=== PATIENT | male | born 1975 | race Caucasian/White ===

== ENCOUNTER 2023-06-28 10:07 | Emergency (ER) | payer OTHER, SELFPAY ==
[2023-06-28] VITALS (7 sets, daily range): BP systolic 139–182; BP diastolic 86–106; BMI 31.8
--- NOTE | 2023-06-28 10:31 | ED.GENMED ---
History of Present Illness
<Saman Finley, DO - Last Filed: 07/01/23 12:29>
General
Chief Complaint: Blood Pressure Problem
Source: patient
Exam Limitations: none
Time Seen by Provider: 06/28/23 10:17
Travel History
Have you had any contact with someone who has COVID-19?: No
Do you have any symptoms of coronavirus? Fever > 100 degrees, chills, cough, shortness of breath, sore throat, loss of taste or smell, muscle aches, or headache?: No
History of Present Illness
History of Present Illness:
See MDM
Past History
<Saman Finley, DO - Last Filed: 07/01/23 12:29>
Past History
ED Past Medical History: HTN
ED Past Surgical History: None
Social History
Tobacco: Non-smoker
Alcohol: None
Phy Exam
<Saman Finley, DO - Last Filed: 07/01/23 12:29>
Physical Exam
Physical Exam:
See MDM
Course
<Saman Finley, DO - Last Filed: 07/01/23 12:29>
Orders/Labs/Results
Orders:
Orders
06/28/23 10:30
0.9% Sodium Chloride 1000 ml [Nss] 1,000 ml IV BOLUS
Lorazepam [Ativan] 1 mg IV NOW STA
06/28/23 11:14
Complete Blood Count/With Diff Urgent
Comprehensive Metabolic Panel Urgent
D-Dimer Urgent
Magnesium Urgent
NT-proBNP Urgent
TSH Reflex To Free T4 Urgent
Troponin I Urgent
06/28/23 12:15
CR Chest - 2 Views Urgent
Comment:
Reason For Exam: SOB
06/28/23 12:18
Amlodipine [Norvasc] 5 mg PO ONCE ONE
06/28/23 13:10
Aspirin Chewable [Low Strength Aspirin] 324 mg PO NOW STA
06/28/23 13:12
Electrocardiogram (*1) Urgent
Reason for Study: Shortness of Breath
EKG- Treatment ONCE
06/28/23 13:13
Consult Cardiology [CARDIOLOGY CONSULT] Urgent
Consulting Provider: Chandu Brunner
Was physician already notified: Yes
06/28/23 13:28
Troponin I Urgent
06/28/23 13:37
Electrocardiogram (*1) Urgent
Reason for Study: Hypertension, Benign
EKG- Treatment ONCE
06/28/23 14:56
Echo 2D MMode Color/Doppler [Echo 2D MMode Color/Doppler] Routine
Reason for Study: chest pain, abnormal troponin
Cardiology Consult: Yoni Brunner
06/28/23 16:00
Metoprolol Xl [Toprol Xl] 25 mg PO DAILY
Abnormal Lab Results
06/28/23 06/28/23
11:14 13:28
Abs Immat Gran (auto) 0.1 H 10^3/uL
(0-0.05)
Immature Gran % 1.0 H %
(0-0.5)
Glucose 106 H mg/dl
(70-99)
ALT 87 H U/L
(0-50)
Troponin I 0.043 H* ng/ml 0.048 H* ng/ml
06/28/23 11:14
06/28/23 11:14
Vital Signs
Initial and Last Documented VS:
Initial Vital Signs
Temp Pulse Resp BP Pulse Ox
98.7 F 115 18 182/106 99
06/28/23 10:11 06/28/23 10:11 06/28/23 10:11 06/28/23 10:11 06/28/23 10:11
Last Documented Vital Signs
Temp Pulse Resp BP Pulse Ox
98.7 F 98 20 139/86 96
06/28/23 10:11 06/28/23 15:00 06/28/23 15:00 06/28/23 15:00 06/28/23 15:00
<Nilesh Ridley MD - Last Filed: 06/28/23 16:25>
Orders/Labs/Results
Orders:
Orders
06/28/23 10:30
0.9% Sodium Chloride 1000 ml [Nss] 1,000 ml IV BOLUS
Lorazepam [Ativan] 1 mg IV NOW STA
06/28/23 11:14
Complete Blood Count/With Diff Urgent
Comprehensive Metabolic Panel Urgent
D-Dimer Urgent
Magnesium Urgent
NT-proBNP Urgent
TSH Reflex To Free T4 Urgent
Troponin I Urgent
06/28/23 12:15
CR Chest - 2 Views Urgent
Comment:
Reason For Exam: SOB
06/28/23 12:18
Amlodipine [Norvasc] 5 mg PO ONCE ONE
06/28/23 13:10
Aspirin Chewable [Low Strength Aspirin] 324 mg PO NOW STA
06/28/23 13:12
Electrocardiogram (*1) Urgent
Reason for Study: Shortness of Breath
EKG- Treatment ONCE
06/28/23 13:13
Consult Cardiology [CARDIOLOGY CONSULT] Urgent
Consulting Provider: Chandu Brunner
Was physician already notified: Yes
06/28/23 13:28
Troponin I Urgent
06/28/23 13:37
Electrocardiogram (*1) Urgent
Reason for Study: Hypertension, Benign
EKG- Treatment ONCE
06/28/23 14:56
Echo 2D MMode Color/Doppler [Echo 2D MMode Color/Doppler] Routine
Reason for Study: chest pain, abnormal troponin
Cardiology Consult: Yoni Brunner
06/28/23 16:00
Metoprolol Xl [Toprol Xl] 25 mg PO DAILY
Abnormal Lab Results
06/28/23 06/28/23
11:14 13:28
Abs Immat Gran (auto) 0.1 H 10^3/uL
(0-0.05)
Immature Gran % 1.0 H %
(0-0.5)
Glucose 106 H mg/dl
(70-99)
ALT 87 H U/L
(0-50)
Troponin I 0.043 H* ng/ml 0.048 H* ng/ml
06/28/23 11:14
06/28/23 11:14
Vital Signs
Initial and Last Documented VS:
Initial Vital Signs
Temp Pulse Resp BP Pulse Ox
98.7 F 115 18 182/106 99
06/28/23 10:11 06/28/23 10:11 06/28/23 10:11 06/28/23 10:11 06/28/23 10:11
Last Documented Vital Signs
Temp Pulse Resp BP Pulse Ox
98.7 F 98 20 139/86 96
06/28/23 10:11 06/28/23 15:00 06/28/23 15:00 06/28/23 15:00 06/28/23 15:00
<Saman Finley, DO - Last Filed: 07/01/23 12:29>
MDM/Problems Addressed
Differential Diagnosis Includes:
HPI and MDM Narrative:
47-year-old male presenting for evaluation of abnormal blood pressure. Patient does take losartan 50 mg daily. He has noted that his blood pressure has been 'all over the place' for the past several days. Patient started to feel anxious. He does
admit that there is increased stress at work. He is unsure if there is some underlying issue or if this is all anxiety related. He did take an clonazepam. Currently at rest, patient started to feel fidgety and anxious. He denies current
chest pain or shortness of breath. He has been able to work out which has been helping. He denies exertional dyspnea or chest pain
Physical exam
General: Well appearing and non-toxic
HEENT: protecting airway
Neck: supple
CV: No evidence of cyanosis. Tachycardic
Resp: No accessory muscle use. Lungs clear
Abd: Non-distended
Extremities: No deformities. No leg edema
Neuro: alert
Psych: Normal affect
Skin: Intact
Problems Addressed including Acute and Chronic Conditions affecting care:
1. Hypertension
Acuity: acute
Prognosis: stable
Details: Will look for underlying lab issues but potentially in the setting of anxiety. Will obtain troponin and D-dimer and reassess after Ativan
2. Intermittent chest comfort
Acuity: acute
Prognosis: stable
Details: Given the elevated troponin, patient given aspirin
Updates
D-dimer negative. Chest x-ray clear.
Patient found to have an elevated troponin. Upon further questioning, it appears the patient has had intermittent chest discomfort. Patient given aspirin. Will have cardiology evaluate
Differential Diagnosis (but not limited to): HTN, anxiety, hyperthyroid
Testing considered:
Drug therapy (if applicable): OTC meds, please see d/c instruction regarding Rx drugs
Amount and/or Complexity of Data Reviewed
Clinical info obtained from: Patient
External data reviewed: N/A
Labs I independently reviewed (but not limited to): Elevated troponin
Radiology: X-ray independently reviewed: Chest x-ray clear
Pulse Ox: not hypoxic
EKG independently reviewed: Sinus rhythm, normal axis, no STEMI
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
Critical Care: N/A
Risk of Complication:
Social Determinants of health: Good social support
Discussed with other providers: Cardiology
Escalation of Care includes Admit/Obs: Will have cardiology evaluate to discuss disposition of home versus admission
Occasional wrong word or 'sound a like' substitutions may have occurred due to the inherent limitations of voice recognition software. Read the chart carefully and recognize, using context, where substitutions have occurred.
<Saman Finley DO - Last Filed: 07/01/23 12:29>
*Critical Care Note
Total Time (30-74mins, 75-104mins- exclusive of procedures): Not Applicable
<Nilesh Ridley MD - Last Filed: 06/28/23 16:25>
Update Note
Update Note:
UPDATE (Nilesh Ridley MD)
Focused HPI: 47-year-old male presented initially for evaluation of very high blood pressure. On further questioning he did admit to intermittent episodes of atypical chest discomfort. Not clearly exertional. Has been monitoring blood pressure
over the past few weeks and noticed that it has been labile and occasionally quite hide despite compliance with his normal blood pressure medication. Currently chest pain-free.
Physical exam: Awake alert ambulatory not in distress. Arrived hypertensive and tachycardic but vital signs normalized by my assessment with a blood pressure of 139/86, heart rate in the 90s.
Medical Decision Making: Patient presented with severe hypertension admits to occasional chest discomfort over the past few weeks. No chest pain at present. He was given amlodipine for his blood pressure with improvement. His CBC and CMP were
unremarkable, EKG showed no STEMI. Troponin was sent off which was marginally positive at 0.043�suspect related to severe hypertension but with intermittent chest discomfort cardiology consulted to see the patient. They agree likely related to
hypertension; repeat troponin was stable. They recommended starting patient on metoprolol and set patient up for a stress test on 07/04/2023 as an outpatient�patient's preference was for discharge and outpatient stress. Will follow-up with patient
in the office. I spoke to the patient in detail about strict return precautions, limits on his activity until full cardiology assessment. All questions were answered.
ED Attending Note
<Saman M. Finley, DO - Last Filed: 07/01/23 12:29>
-
Portions of this chart may have been created with voice recognition software.� Occasional wrong word or��sound alike� substitutions may have occurred due to the inherent limitations of voice recognition software.
Discharge Plan
Departure
Patient Disposition: Home (Routine Discharge)
Date of Disposition: 06/28/23
Time of Disposition: 16:14
Patient with high blood pressure during this ER visit?: Yes
Discharge Problem:
Intermittent chest pain, HTN (hypertension)
Instructions: Chest Pain DCA Follow Up
Prescriptions:
New
metoprolol succinate [Toprol XL] 25 mg tablet extended release 24 hr
25 mg PO DAILY Qty: 30 0RF
No Action
losartan 50 mg Tablet
50 mg PO HS
clonazepam 0.5 mg Tablet
0.25 mg PO ONCE PRN (Reason: anxiety)
Patient Comments:
06/28/2023, pt. used old prescription that he states in 2021.
omega 7-yjh-hcz-fish oil [Fish Oil] 1,000 mg (120 mg-180 mg) Capsule
1 cap PO DAILY
garlic
1 tab PO DAILY
Referrals:
Liberty Ellis PA-C [Specified Professional Personl] - 07/16/23 1:00 pm (You have a cardiology follow-up on July 15 at 1 PM in [address] in the [place] which is located behind the hospital. If you are unable to make this appointment please call
[phone] to reschedule)
Mae Mcmahon CRNP [Family Provider] -
Activity Restrictions/Additional Instructions:
You are scheduled for an exercise nuclear stress test on July 03 at 1 PM at the [facility] which is located on [address] [place] [address], [address] If you are unable to make this appointment please call [phone]
to reschedule
Interventions
Interventions:
*Risk Screen - Suicide Last Done: 06/28/23 10:13
*General Assessment Last Done: 06/28/23 10:13
*Neglect/Abuse Screening Last Done: 06/28/23 10:13
*Nursing Disposition Last Done: 06/28/23 16:34
ED- Cardiac Assessment Last Done: 06/28/23 11:33
ED- Neurological Assessment Last Done: 06/28/23 11:33
ED- Pulmonary Assessment Last Done: 06/28/23 11:33
Discharge Date and Time
Discharge Date/Time: 06/28/23 16:34
Print Language: [place]
[2023-06-28] MEDS: NSS 1000 IV (11:18)
[2023-06-28] MEDS: ATIVAN 1 MG IV (11:19)
[2023-06-28 11:25] LABS: % Eosinophils 0.7 % (0-6); % Lymphocytes 20.7 % (20.5-51.1); % Monocytes 8.5 % (1.7-9.3); % Neutrophils 68.1 % (42.2-75.2); Absolute Basophils 0.1 10^3/uL (0-0.2); Absolute Immature Granulocytes 0.1 10^3/uL (0-0.05); Absolute Lymphocytes 1.2 10^3/uL (1.2-3.4); Absolute Monocytes 0.5 10^3/uL (0.1-0.6); Hematocrit 46.6 % (39.0-52.0); Hemoglobin 15.9 g/dL (13.0-18.0); Mean Corp Hgb Conc. 34.1 g/dL (33.0-37.0); Mean Corpuscular Hgb 30.9 pg (27.0-31.0); Mean Corpuscular Volume 90.7 fL (80.0-94.0); Mean Platelet Volume 8.7 fL (7.4-10.4); Nucleated Red Blood Cells % 0 % (-); Platelet Count 225 10^3/uL (130-400); Red Blood Cell Count 5.14 10^6/uL (4.70-6.10); Red Cell Dist. Width 11.9 % (11.5-14.5); White Blood Cell Count 5.9 10^3/uL (4.8-10.8)
[2023-06-28 11:38] LABS: D-Dimer < 0.27 ug/mlFEU (0.00-0.50)
[2023-06-28] MEDS: NORVASC 5 MG PO (12:25)
[2023-06-28 12:45] LABS: ALT (SGPT) 87 U/L (0-50); AST (SGOT) 49 U/L (17-59); Alkaline Phosphatase 87 U/L (38-126); Blood Urea Nitrogen 14 mg/dl (9-20); Calcium 9.8 mg/dl (8.4-10.2); Carbon Dioxide 26 mmol/L (22-30); Chloride 101 mmol/L (98-107); Estimated Creatinine Clearance > 125 ml/min; Glucose 106 mg/dl (70-99); Magnesium 2.2 mg/dl (1.6-2.3); Potassium 4.3 mmol/L (3.5-5.1); Sodium 135 mmol/L (135-145); Total Bilirubin 0.8 mg/dl (0.2-1.3); Total Protein 7.8 g/dl (6.3-8.2); eGFR > 60.00
[2023-06-28 12:56] LABS: NT-proBNP 262 pg/ml; Troponin I 0.043 ng/ml
[2023-06-28 13:14] LABS: TSH Reflex To Free T4 1.54 uIU/ml (0.47-4.68)
[2023-06-28] MEDS: LOW STRENGTH ASPIRIN 324 MG PO (13:22)
[2023-06-28 14:06] LABS: Troponin I 0.048 ng/ml
--- NOTE | 2023-06-28 14:43 | CON.CAR ---
Addendum entered and electronically signed by Chandu Brunner MD 06/28/23 17:38:
I saw and examined the patient.
The Networking Technician's note was reviewed and I agree with the note.
Comment:
GEN: No distress, awake, Ox3
HEENT: supple, anicteric, mmm
LUNGS: CTA, no wheezes/rales
CV: Reg, S1/S2, 1/6 syst LSB, no gallop
ABD: soft, BS+, NT/ND
EXT: No edema
NEURO: Gross non-focal
SKIN: No rash
plan:
47-year-old man with past medical history of hypertension presents with intermittent episodes of markedly elevated blood pressure readings and intermittent chest discomfort. His symptoms do not seem to be worse with exertion. He was able to jog
several miles this week with no significant chest pains. He currently is pain-free and his blood pressure is improved. He has been compliant with his losartan at home. EKG is overall unremarkable and cardiac troponin is 0.04 x 2.
I had a lengthy discussion with him. Echocardiogram was performed today which revealed no clear wall motion abnormalities or significant valve disease.
Will start aspirin 81 mg daily and continue the losartan and add Toprol 25 mg daily. He will follow his blood pressure at home.
We will proceed with an exercise nuclear stress test this week to better stratify him. I advised him if he has any further symptoms he needs to return to the emergency room for cardiac catheterization.
If his stress test is abnormal I would have a low threshold to proceed with catheterization.
Will arrange outpatient follow-up.
Original Note:
Consultation
Consultation Request
Date/Time Consultation Requested: 06/28/2023
Date/Time Consultation Performed: 06/28/2023
Requesting Provider: Dr. Finley
Performing Provider: Stella Pena PA-C for Dr. Brunner
Reason for Consultation: Chest tightness, hypertension
Medical History
-
History of Present Illness:
Patient is a 47-year-old male with past medical history significant for hypertension who presents to emergency department 06/28/2023 with complaints of intermittent chest discomfort and labile blood pressure/hypertension. Patient reports on 06/22/2023
he started noting intermittent substernal chest discomfort after eating a primo hoagie associated with mild reflux symptoms. Chest discomfort would last 1 to 2 minutes then resolved. It happened on several occasions throughout the evening.
Several days later he noted similar chest discomfort/tightness. That would come and go without rhyme or reason primarily at rest. It would last a couple minutes then resolve. He reports if he got up and moved around chest discomfort would
actually feel improved. This morning around 2 AM he woke up and could not sleep. He went downstairs to watch TV and while sitting on the couch developed chest discomfort. He checked his blood pressure and it was found to be elevated at 170/100.
Given these ongoing symptoms he decided to come to the emergency department. He denied having associated shortness of breath, headache, dizziness, palpitations. He admits over the last 7 to 10 days he has been eating fast food high in sodium
content given his kids sports schedule. He is an active individual and was able to run several times earlier this week 3 miles without chest pain or shortness of breath. In emergency department EKG showed sinus rhythm without ischemic changes.
Initial troponin 0.043. Repeat 0.048. Chest x-ray showed no acute cardiopulmonary disease. Blood pressure on admission 182/106. Patient was provided aspirin and 5 mg of amlodipine with improvement of blood pressure to 144/91. He currently
denies chest pain. Patient reports he takes losartan 50 mg at home. He has noted his blood pressure to be elevated and labile over the last several weeks.
Past medical history:
Hypertension
Anxiety
Past Medical History
Past Medical History: Other (See HPI)
Past Surgical History: Other (Dental implant)
Social History
Tobacco: Other (Chew tobacco several times a week)
Alcohol: Daily (2 bourbons and a beer nightly)
Drug: None
Personal:
Living: With Family
Employment: Employed ([employer])
Family History
Family History: Other (Father had hypertension and hyperlipidemia, paternal grandfather had VT)
Allergies / Home Medications
Allergy/AdvReac Type Severity Reaction Status Date / Time
No Known Allergies Allergy Unverified 06/28/23 10:11
�Medication �Instructions �Recorded �Confirmed �Type
clonazepam 0.5 mg tablet 0.25 mg PO ONCE PRN anxiety 06/28/23 06/28/23 History
garlic 1 tab PO DAILY 06/28/23 06/28/23 History
losartan 50 mg tablet 50 mg PO HS 06/28/23 06/28/23 History
omega 2-kjs-hve-fish oil 1,000 mg 1 cap PO DAILY 06/28/23 06/28/23 History
(120 mg-180 mg) capsule (Fish Oil)
Review of Systems
-
History Source: Patient
All other systems: Negative unless noted
Physical Exam
Vital Signs
Temp Pulse Resp BP Pulse Ox
98.7 F 96 19 148/93 99
06/28/23 10:11 06/28/23 13:30 06/28/23 12:34 06/28/23 13:00 06/28/23 13:30
GEN: No distress, awake, Ox3
HEENT: supple, anicteric, mmm
LUNGS: CTA, no wheezes/rales
CV: Reg, S1/S2, no murmur, rub or gallop
ABD: soft, BS+, NT/ND
EXT: No edema, clubbing or cyanosis
NEURO: Gross non-focal
SKIN: No rash, warm, dry
Lab Results
06/28/23 11:14
06/28/23 11:14
Troponin I 0.048 ng/ml H* 06/28/23 13:28
Ucs-N-Fcntuucusql Pept 262 pg/ml 06/28/23 11:14
Impression / Plan
-
Process Environmental Technician: None prior to admission initial consult done by Dr. Brunner
Impression:
Presents 06/28/2023 with intermittent substernal chest pressure x 6 days
Hypertensive urgency
Abnormal troponin
Hypertension
Anxiety
Echo 06/28/2023: Ordered
Plan:
-Presents 06/28/2023 with intermittent substernal chest pressure x 6 days. Chest pain generally nonexertional and happens mostly at rest
-Blood pressure noted to be quite hypertensive 182/106 on arrival. Patient was provided amlodipine 5 mg and aspirin in emergency department. Blood pressure has improved to 144/91
-EKG shows sinus rhythm without ischemia. Patient currently chest pain-free
-Chest x-ray no acute cardiopulmonary abnormality
-Initial troponin 0.043, repeat 0.048. Unclear etiology, suspect hypertensive related vs ischemia
-Will check urgent echocardiogram
-If echocardiogram unremarkable would intensify hypertensive regimen and discharged home with plan for outpatient stress test. If echocardiogram abnormal patient will require admission. Patient prefers to go home if possible.
HPI 06/28/23:
Patient is a 47-year-old male with past medical history significant for hypertension who presents to emergency department 06/28/2023 with complaints of intermittent chest discomfort and labile blood pressure/hypertension. Patient reports on 06/22/2023
he started noting intermittent substernal chest discomfort after eating a primo hoagie associated with mild reflux symptoms. Chest discomfort would last 1 to 2 minutes then resolved. It happened on several occasions throughout the evening.
Several days later he noted similar chest discomfort/tightness. That would come and go without rhyme or reason primarily at rest. It would last a couple minutes then resolve. He reports if he got up and moved around chest discomfort would
actually feel improved. This morning around 2 AM he woke up and could not sleep. He went downstairs to watch TV and while sitting on the couch developed chest discomfort. He checked his blood pressure and it was found to be elevated at 170/100.
Given these ongoing symptoms he decided to come to the emergency department. He denied having associated shortness of breath, headache, dizziness, palpitations. He admits over the last 7 to 10 days he has been eating fast food high in sodium
content given his kids sports schedule. He is an active individual and was able to run several times earlier this week 3 miles without chest pain or shortness of breath. In emergency department EKG showed sinus rhythm without ischemic changes.
Initial troponin 0.043. Repeat 0.048. Chest x-ray showed no acute cardiopulmonary disease. Blood pressure on admission 182/106. Patient was provided aspirin and 5 mg of amlodipine with improvement of blood pressure to 144/91. He currently
denies chest pain. Patient reports he takes losartan 50 mg at home. He has noted his blood pressure to be elevated and labile over the last several weeks.
Data Reviewed
-
EKG: Report Reviewed by me, Discussed with Physician, Discussed with Nurse and Discussed with Patient
Radiology: Report Reviewed by me, Discussed with Physician, Discussed with Nurse and Discussed with Patient
Labs: Labs Reviewed by me, Discussed with Physician, Discussed with Nurse and Discussed with Patient
Old Records: Reviewed
[2023-06-28] MEDS: TOPROL XL 25 MG PO (15:38)
== END 2023-06-28 16:34 | disposition home or self-care (01) ==
LOC: EMR 10:07
PROVIDERS: CONSULT PHYSICIAN Internal Medicine Cardiovascular Disease; EMERGENCY PHYSICIAN Student in an Organized Health Care Education/Training Program; FAMILY PHYSICIAN Nurse Practitioner
DX: R07.89 Other chest pain (principal); I10 Essential (primary) hypertension
CPT/HCPCS: 99285; 96374; 96361; 71046; 80053; 83735; 83880; 84443; 84484; 85025; 85379; 93005; 93306

== ENCOUNTER → 2023-07-04 12:04 | Outpatient (REF) | payer OTHER, SELFPAY | LOC: DHCBC/DCA 12:04 | PROVIDERS: ATTENDING PHYSICIAN Internal Medicine Cardiovascular Disease | DX: R07.9 Chest pain, unspecified (principal); I10 Essential (primary) hypertension; R79.89 Other specified abnormal findings of blood chemistry | CPT/HCPCS: 78452; 93017; A9500 ==

== ENCOUNTER 2023-07-26 09:18 | Day surgery (SDC) | payer OTHER, SELFPAY ==
[2023-07-26] VITALS (26 sets, daily range): BP systolic 155–182; BP diastolic 98–110; BMI 30.9
[2023-07-26 10:07] LABS: HDL Cholesterol 54 mg/dl; LDL Cholesterol, Calculated 150 mg/dl; Total Cholesterol 223 mg/dl (50-199); Triglyceride 98 mg/dl (10-149); Very Low Density Lipoprotein 19 mg/dl (0-30)
[2023-07-26] MEDS: NSS 284 ML IV (10:08)
[2023-07-26 11:33] LABS: ACT-LR - POC 318 Seconds (116-155)
[2023-07-26 11:59] LABS: ACT-LR - POC 306 Seconds (116-155)
[2023-07-26] MEDS: NSS 1000 IV (12:16)
--- NOTE | 2023-07-26 12:28 | CM ---
Priced Kavon thru patient's insurance.
Estimated cost of 30 d supply would be $86.59/mo. Patient would qualify for $5/mo coupon.
Call to patient's pharmacy-confirmed that they have enough stock for Rx.
--- NOTE | 2023-07-26 12:41 | PTCARENOTE ---
Pt's blood pressure remains 160's-low 100's. Pt states he has a very slight headache at this time. Pt declines any tylenol at this time. Pt also denies chest pain at this time. Dorene Chavis NP made aware and assessed pt. Will continue to monitor.
--- NOTE | 2023-07-26 13:24 | ITS.CL.CATH ---
High Wire Artist - Catheterization
Cardiac Catheterization
Procedure Report:
LEFT HEART CATH AND CORONARY INTERVENTION
Date of Procedure: July 26, 2023
Referring: Dr. Alexander Lind
PROCEDURES:
1. Left heart catheterization with coronary and single-plane left ventriculography
2. Successful stenting of the mid LAD with a 3.0 x 30 mm Maged stent that was implanted at nominal pressures and postdilated with a 3.25 mm noncompliant balloon to nominal pressures distally and to high pressures in the proximal midportion of the
stent
INDICATION: Unstable angina
ACCESS: Right radial artery, 6 German sheath
HEMODYNAMICS (mmHg):
AO (s/d, m) : 158/101
LV (s/d) : 166/15
LVEDP : 35
CORONARY FINDINGS
Dominance: Left
LEFT MAIN: Normal
LEFT ANTERIOR DESCENDING: The LAD arises normally from the left main and runs in the anterior interventricular groove. The mid LAD beyond a large septal repair miller becomes subtotally occluded with the distal vessel filling via MEREDITH I-II flow. The
mid-distal LAD appears to be a moderate caliber vessel.
RAMUS INTERMEDIUS: Large caliber ramus that bifurcates distally. Minor irregularities are noted
CIRCUMFLEX: The circumflex is a codominant vessel, however, the LAD supplies the majority of the inferior wall as it wraps completely around the apex. The circumflex gives rise to a small OM1 and continues in the AV groove supplying 2 small
posterolateral branches. The more distal of the posterolateral branch is a small caliber vessel with a 80% mid stenosis
RIGHT CORONARY: Medium caliber nondominant vessel
VENTRICULOGRAPHY: Left ventriculography is performed in an [place] projection. The digital single-plane left ventricular ejection fraction is estimated at 60% with mild hypokinesis in the apical inferior wall
ANGIOPLASTY PROCEDURE DETAIL: Upon review of the diagnostic catheterization films the decision was made to proceed with percutaneous revascularization of the subtotally occluded mid LAD. Intravenous heparin was administered and the ACT was
monitored throughout the procedure. The origin of the left main was cannulated with a 6 German EBU 3.75 guiding catheter and a BMW guidewire was advanced across the stenotic segment in the mid LAD without a significant amount of difficulty.
Balloon predilation was performed using a 2.25 mm Euphora balloon a 3.0 x 30 mm Maged stent was then advanced to the mid LAD where it was position with angiographic and fluoroscopic guidance. The stent was implanted at nominal pressures then
postdilated to high pressures with a 3.25 mm noncompliant balloon with an excellent angiographic result
RADIATION SUMMARY: Fluoro Time (min): 10.2, Dose (mGy): 981.5, DAP (Gy.cm2) : 79.2
CONCLUSIONS
1. Successful stenting of subtotally occluded mid LAD with placement of a 3.0 x 30 mm Maged stent that was implanted at nominal pressures and postdilated to 22 misael proximally and nominal pressures distally with an excellent angiographic result
2. Preserved left ventricular systolic function
RECOMMENDATIONS
1. Patient received a 180 mg loading dose of ticagrelor at the conclusion of the interventional procedure. He will be treated for 12 months with ticagrelor and aspirin if possible given the unstable nature of presenting symptoms. Afterwards will
need aspirin lifelong
2. High intensity statin therapy
3. Needs aggressive blood pressure control. Patient states that his blood pressures at home have been running high and we have changed his metoprolol 25 mg daily to carvedilol 12.5 mg p.o. twice daily. He should monitor home blood pressures and
bring a list of home blood pressure readings to next office visit
Copy to: Dr. Alexander Lind
--- NOTE | 2023-07-26 13:37 | PTCARENOTE ---
Pt's blood pressure remains 160's- low 100's. Dorene Chavis GYNECOLOGIST made aware and ordered stat losartan and metoprolol succinate. Will administer medications and continue to monitor.
[2023-07-26] MEDS: TOPROL XL 25 MG PO (13:39)
[2023-07-26] MEDS: COZAAR 50 MG PO (13:42)
--- NOTE | 2023-07-26 14:10 | PTCARENOTE ---
Cardiac rehab at pt bedside speaking to pt.
--- NOTE | 2023-07-26 14:17 | PTCARENOTE ---
Dr Luis at pt bedside speaking to pt.
--- NOTE | 2023-07-26 15:07 | PTCARENOTE ---
Pt's blood pressure remains 170/105. Pt sleeping when undisturbed. Pt medicated for blood pressure previously. Dorene Chavis NP made aware. No further treatment ordered at this time. Will continue to monitor.
--- NOTE | 2023-07-26 15:32 | PTCARENOTE ---
Pt c/o some chest discomfort rated 3/10 and described as 'very dull' and 'feels like a foreign object in my chest.' BP remains elevated since pre procedure. Dorene Chavis NP made aware. Dorene Chavis NP states she informed Dr Luis of pt's chest discomfort
and no treatment ordered at this time. Will continue to monitor.
--- NOTE | 2023-07-26 16:03 | PTCARENOTE ---
Dr Luis at pt bedside speaking to and assessig pt. Dr Luis informed of pt's blood pressure and chest discomfort by myself as well. No further treatment ordered at this time. Will continue to monitor.
--- NOTE | 2023-07-26 16:09 | W.PN.UPDATE ---
Update Note
Progress Note Update
Attending addendum: Patient seen and examined. Low grade unchanging chest awareness that did not change with ambulation. Blood pressure running high as it had been at home.
Right radial artery : Good pulse. No hematoma
RECOMMENDATIONS:
- discussed dual antiplatelet therapy
- Monitor home blood pressure 3-4 x weekly. Bring machine and record of home readings to office visit
- discussed bp medication changes
- discussed limited activity for right radial artery for a week.
== END 2023-07-26 17:00 | disposition home or self-care (01) ==
LOC: CATH 09:18
PROVIDERS: ATTENDING PHYSICIAN Internal Medicine Interventional Cardiology; FAMILY PHYSICIAN Nurse Practitioner; OTHER PHYSICIAN Internal Medicine Cardiovascular Disease
DX: I25.110 Atherosclerotic heart disease of native coronary artery with unstable angina pectoris (principal); I10 Essential (primary) hypertension; Z79.82 Long term (current) use of aspirin; Z79.02 Long term (current) use of antithrombotics/antiplatelets
CPT/HCPCS: 80061; 85347; 93005; 93458; C1725; C1769; C1874; C1894; C9600; Q9967

== ENCOUNTER → 2024-01-08 09:00 | Outpatient (REF) | payer OTHER, SELFPAY | LOC: RCS 09:00 | PROVIDERS: ATTENDING PHYSICIAN Internal Medicine Cardiovascular Disease; FAMILY PHYSICIAN Internal Medicine | DX: I25.10 Atherosclerotic heart disease of native coronary artery without angina pectoris (principal); I51.7 Cardiomegaly | CPT/HCPCS: 93017; 93350 ==

== ENCOUNTER 2024-02-28 09:52 | Emergency (ER) | payer OTHER, SELFPAY ==
[2024-02-28 10:26] VITALS: BP 162/97
--- NOTE | 2024-02-28 10:31 | ED.GENMED ---
ED Provider Triage
-
Patient seen by provider in Triage?: Seen in Triage
48 yo male w/ hx of CAD w/ stent placed in June 2023 here for elevated BP readings x 1-2 weeks. 160/100 or greater. No complaints. Did have brief episodic chest pain last week but this has since resolved. Not similar to past TX. Taking meds
appropriately
History of Present Illness
General
Chief Complaint: Blood Pressure Problem
Time Seen by Provider: 02/28/24 10:40
History of Present Illness
History of Present Illness:
48-year-old male presents due to elevated blood pressure readings over the past 1 to 2 weeks. Exceeding 160/110 at home. Did have brief episodic chest pain several days ago but this resolved. Was not similar to his past angina. Recent NSTEMI
with stent placed in early 2023. Currently on losartan as well as carvedilol.
Past History
Past History
ED Past Medical History: HTN
ED Past Surgical History: None
Social History
Tobacco: Non-smoker
Alcohol: None
Review of Systems
Review of Systems
Allergies reviewed?: Yes
All Other Systems: ROS reviewed and negative except as documented in HPI and ROS
Phy Exam
Physical Exam
Physical Exam:
GEN: Well appearing, NAD, WDWN
HEENT: Oral mucosa moist, no scleral icterus
Cardiac: Regular rate
Lung: No respiratory distress, no tachypnea
MSK: No gross deformity or injuries
Skin: Good color, no pallor or jaundice, no rashes
Neuro: AO x3, moves all extremities freely
Psych: Calm, cooperative
Course
Orders/Labs/Results
Orders:
Orders
02/28/24 10:28
Electrocardiogram (*1) Urgent
Reason for Study: QTc Monitoring
EKG- Treatment ONCE
Vital Signs
Initial and Last Documented VS:
Initial Vital Signs
Temp Pulse Resp BP Pulse Ox
98.5 F 68 18 162/97 100
02/28/24 10:26 02/28/24 10:26 02/28/24 10:02/28/24 10:02/28/24 10:26
Last Documented Vital Signs
Temp Pulse Resp BP Pulse Ox
98.5 F 68 18 162/97 100
02/28/24 10:26 02/28/24 10:02/28/24 10:02/28/24 10:02/28/24 10:26
MDM/Problems Addressed
MDM/Problems Addressed:
EKG is grossly unremarkable with no signs of ischemia. He is asymptomatic. We will increase his losartan to 100 mg and recommend outpatient cardiology and/or primary care follow-up
*Critical Care Note
Total Time (30-74mins, 75-104mins- exclusive of procedures): Not Applicable
ED Attending Note
-
Portions of this chart may have been created with voice recognition software.� Occasional wrong word or��sound alike� substitutions may have occurred due to the inherent limitations of voice recognition software.
Discharge Plan
Departure
Patient Disposition: Home (Routine Discharge)
Date of Disposition: 02/28/24
Time of Disposition: 10:40
Patient with high blood pressure during this ER visit?: No
Discharge Problem:
High blood pressure
Instructions: High Blood Pressure (DC)
Prescriptions:
New
losartan 100 mg tablet
100 mg PO HS Qty: 30 0RF
No Action
losartan 50 mg Tablet
50 mg PO HS
clonazepam 0.5 mg Tablet
0.25 mg PO DAILYPRN PRN (Reason: anxiety)
Patient Comments:
06/28/2023, pt. used old prescription that he states in 2021.
omega [id number] oil [Fish Oil] 1,000 mg (120 mg-180 mg) Capsule
1 cap PO DAILY
garlic
1 tab PO DAILY
aspirin [aspirin] 81 mg tablet,chewable
81 mg PO DAILY Qty: 1 0RF
Brilinta 90 mg tablet
90 mg PO BID Qty: 60 12RF
atorvastatin 80 mg tablet
80 mg PO QPM Qty: 90 5RF
carvedilol 12.5 mg tablet
12.5 mg PO BID Qty: 60 6RF
Interventions
Interventions:
*General Assessment Last Done: 02/28/24 10:49
*Nursing Disposition Last Done: 02/28/24 10:49
ED- Cardiac Assessment Last Done: 02/28/24 10:49
ED- Neurological Assessment Last Done: 02/28/24 10:49
ED- Pulmonary Assessment Last Done: 02/28/24 10:49
Discharge Date and Time
Discharge Date/Time: 02/28/24 10:50
Print Language: ALBANIAN
== END 2024-02-28 10:50 | disposition home or self-care (01) ==
LOC: EMR 09:52
PROVIDERS: EMERGENCY PHYSICIAN Emergency Medicine; FAMILY PHYSICIAN Internal Medicine
DX: I10 Essential (primary) hypertension (principal); I25.10 Atherosclerotic heart disease of native coronary artery without angina pectoris
CPT/HCPCS: 99283; 93005